=== PATIENT | male | born 1965 ===

== ENCOUNTER → 2017-11-03 11:48 | Emergency (ER) | payer OTHER ==
[~2017-11-03 11:48] MED LIST: HYDROmorphone INJ* 2 MG/ML CARPUJECT SYRINGE IM ONE; Morphine INJ* 10 MG/ML 1 ML CARPUJECT IV ONE
--- NOTE | 2017-11-03 15:31 | RAD ---
Indication: RIGHT shoulder pain following diving injury. Dislocation. Comparison: No relevant prior exams available on the [facility] PACS for comparison. Technique: AP and scapular Y views RIGHT shoulder REPORT AND IMPRESSION: #. Anterior glenohumeral dislocation. #. Hill-Sachs impaction fracture with laterally displaced fragment measuring up to 2.2 cm. #. Associated hemarthrosis. #. No glenoid fracture visualized. #. Normal acromioclavicular joint alignment.
--- NOTE | 2017-11-03 15:33 | RAD ---
Indication: Post reduction RIGHT glenohumeral dislocation. Comparison: Prereduction exam of the same date. Technique: AP and scapular Y views RIGHT shoulder REPORT AND IMPRESSION: #. Restored glenohumeral joint alignment. #. Grossly resolved displacement of the Hill-Sachs impaction fracture compared with the prereduction exam.
--- NOTE | 2017-11-03 15:38 | ED ---
Upper Extremity Pain - HPI Summary HPI Summary: Patient is a 52-year-old male presenting to the ED with the chief complaint of right shoulder injury after swimming today. He states he was diving into a [place] when he felt his shoulder pop out of place. On arrival there is a notable deformity to the right shoulder. Denies any numbness or tingling, color temperature changes. He endorses an 8/10. Denies any previous history of dislocations. - History of Current Complaint Chief Complaint: EDShouldLouisalaChace Stated Complaint: RT ARM INJURY Time Seen by Provider: 11/03/17 12:42 Hx Obtained From: Patient Mechanism Of Injury: Twisted Onset/Duration: Started Hours Ago Timing: Constant Severity Initially: Severe Severity Currently: Severe Pain Location: Shoulder Character: Aching Aggravating Factor(s): Movement, Lifting, Flexion, Extension, Internal/External Rotation Alleviating Factor(s): Nothing Associated Signs & Symptoms: Positive: Negative Related History: Dominant Hand Right - Risk Factors Non-Orthopedic Risk Factor: Negative - Allergies/Home Medications Allergies/Adverse Reactions: Allergies Allergy/AdvReac Type Severity Reaction Status Date / Time No Known Allergies Allergy Verified 11/03/17 11:55 PMH/Surg Hx/FS Hx/Imm Hx Previously Healthy: Yes - Immunization History Hx Pertussis Vaccination: No Immunizations Up to Date: Unable to Obtain/Confirm Infectious Disease History: No Infectious Disease History: Reports: Traveled Outside the [place] in Last 30 Days - from [place] - Social History Occupation: Employed Full-time Lives: With Family Alcohol Use: None Hx Substance Use: No Substance Use Type: Reports: None Smoking Status (MU): Never Smoked Tobacco Review of Systems Constitutional: Negative Negative: Fever, Chills, Fatigue Negative: Epistaxis, Dental Pain Negative: Palpitations, Chest Pain Genitourinary: Negative Positive: no symptoms reported, see HPI Positive: Arthralgia Skin: Negative Neurological: Negative All Other Systems Reviewed And Are Negative: Yes Physical Exam Triage Information Reviewed: Yes Vital Signs On Initial Exam: Initial Vitals Temp Pulse Resp BP Pulse Ox 97.5 F 76 15 151/100 99 11/03/17 11:51 11/03/17 11:51 11/03/17 11:51 11/03/17 11:51 11/03/17 11:51 Vital Signs Reviewed: Yes Appearance: Positive: Well-Appearing, Well-Nourished Skin: Positive: Warm, Skin Color Reflects Adequate Perfusion Head/Face: Positive: Normal Head/Face Inspection Eyes: Positive: EOMI, MARLENE, Conjunctiva Clear Neck: Positive: Supple, No Lymphadenopathy Respiratory/Lung Sounds: Positive: Clear to Auscultation, Breath Sounds Present Cardiovascular: Positive: RRR, Pulses are Symmetrical in both Upper and Lower Extremities Musculoskeletal: Positive: Pain @ - right shoulder Neurological: Positive: Speech Normal Psychiatric: Positive: Normal, Affect/Mood Appropriate AVPU Assessment: Alert Diagnostics - Vital Signs Vital Signs Temp Pulse Resp BP Pulse Ox 11/03/17 13:57 18 11/03/17 11:51 97.5 F 76 15 151/100 99 - Laboratory Lab Statement: Any lab studies that have been ordered have been reviewed, and results considered in the medical decision making process. Course/Dx - Course Course Of Treatment: During the course of treatment, the patient is evaluated for right shoulder dislocation. X-ray obtained which shows a right shoulder dislocation anteriorly with no other fractures identified. Hill-Sachs deformity is noted. Used traction countertraction with good reduction effect. Post reduction x-rays read by myself, Amelia Powers PA-C as successfully reduced. Patient is given a sling 3 weeks. He is to follow-up with orthopedics. - Diagnoses Provider Diagnoses: Shoulder dislocation Discharge - Sign-Out/Discharge Documenting (check all that apply): Patient Departure - Discharge Plan Condition: Stable Disposition: HOME Referrals: No Primary Care Phys,NOPCP [Primary Care Provider] - - Billing Disposition and Condition Condition: STABLE Disposition: Home
[2017-11-03 15:55] VITALS: BP 130/72
== END | disposition home or self-care (01) ==
LOC: ED 11:48
DX: S42.291A Other displaced fracture of upper end of right humerus, initial encounter for closed fracture (principal); X58.XXXA Exposure to other specified factors, initial encounter; Y93.12 Activity, springboard and platform diving; Y92.828 Other wilderness area as the place of occurrence of the external cause
CPT/HCPCS: 24505; 96372; 99282; J1170; J2270